=== PATIENT | female | born 1975 | race Caucasian/White ===

== ENCOUNTER 2017-10-02 22:53 | Inpatient (IN) | payer BC, MEDICAID ==
[~2017-10-02] VITALS: Ht 165.1 cm; Wt 77.1 kg
[2017-10-03 01:13] LABS: BASOPHILS % (AUTO) 0.7 % (0.0-2.0); EOSINOPHILS % (AUTO) 0.9 % (1.0-6.0); HEMOGLOBIN 16.3 g/dL (12.0-16.0); LYMPHOCYTES # (AUTO) 1.2 K/uL (1.0-4.8); LYMPHOCYTES % (AUTO) 12.2 % (22.0-44.0); MEAN CORPUSCULAR HEMOGLOBIN 30.6 pg (26.0-34.0); MEAN CORPUSCULAR HGB CONC 35.4 G/dL (31.0-37.0); MEAN CORPUSCULAR VOLUME 86 fL (80-100); MONOCYTES # (AUTO) 0.5 K/uL (0.1-1.0); MONOCYTES % (AUTO) 4.5 % (2.0-9.0); NEUTROPHILS # (AUTO) 8.3 K/uL (1.8-7.7); NEUTROPHILS % (AUTO) 81.7 % (40.0-70.0); PLATELET COUNT (AUTO) 162 K/uL (150-450); RED BLOOD CELL COUNT(AUTO) 5.33 MIL/uL (4.00-5.20); RED CELL DISTRIBUTION WIDTH 14.4 % (11.5-14.5)
[2017-10-03 01:23] LABS: ANION GAP 7 mmol/L (8-16); CALCIUM, TOTAL 9.2 mg/dL (8.8-10.5); CARBON DIOXIDE 26 mmol/L (22-29); CHLORIDE 94 mmol/L (98-107); CREATININE 0.62 mg/dL (0.60-1.30); GLOMERULAR FILTR. RATE CALC > 60 mL/min (>60); GLUCOSE,RANDOM 109 mg/dL (70-110); POTASSIUM 3.7 mmol/L (3.5-5.1); SODIUM SERUM 127 mmol/L (136-145); UREA NITROGEN, BLOOD 3 mg/dL (7-18)
[2017-10-03 01:28] LABS: ALANINE AMINOTRANSFERASE 37 U/L (12-78); ALBUMIN 4.1 g/dL (3.4-5.0); ALKALINE PHOSPHATASE 94 U/L (46-116); ASPARTATE AMINOTRANSFERASE 27 U/L (15-37); BILIRUBIN,TOTAL 0.7 mg/dL (0.1-1.0); TOTAL PROTEIN, SERUM 7.1 g/dL (6.4-8.2)
[2017-10-03] MEDS ORDERED: SODIUM CHLORIDE 1 GM TABLET PO ONE (01:45)
[2017-10-03] MEDS ORDERED: SODIUM CHLORIDE 0.9% 1,000 ML IV ONE (02:00)
[2017-10-03] MEDS ORDERED: LORazepam 2 MG/ML VIAL IVP ONE (02:15)
[2017-10-03] MEDS ORDERED: HALOPERIDOL LACTATE 5 MG/ML VIAL IM ONE (02:15)
[2017-10-03] MEDS ORDERED: NEOMYCIN/BACITRACIN/POLYMYXIN B OINTMENT PACKET TP ONE ×2 (02:15)
[2017-10-03] MEDS ORDERED: ZOLPIDEM TARTRATE 10 MG TABLET PO PRN (02:30)
[2017-10-03 03:13] LABS: CHOL/HDL RATIO 2.6 (3.9-5.7); CHOLESTEROL 157 mg/dL (131-200); HDL CHOLESTEROL 61 mg/dL (40-60); LDL CHOL (CALC.) 69 mg/dL (0-130); TRIGLYCERIDES 133 mg/dL (15-150)
[2017-10-03 03:34] LABS: FREE T4 (FREE THYROXINE) 1.27 ng/dL (0.76-1.46); THYROID STIMULATING HORMONE 2.32 uIU/mL (0.36-3.74)
[2017-10-03 03:46] LABS: HEMOGLOBIN A1C 5.2 % (4.5-6.2)
[2017-10-03 10:38] LABS: GLUCOMETER DEV NAME(LOC) BV3S 2; GLUCOSE,POINT OF CARE 81 MG/DL (70-110)
[2017-10-03 10:55] VITALS: BP 118/81
[2017-10-03] MEDS: OLANZapine 5 MG TABLET PO SCH (16:15)
[2017-10-03] MEDS: LORazepam 2 MG TABLET PO PRN (16:16)
[2017-10-03 16:40] VITALS: BP 124/70
[2017-10-04 06:48] VITALS: BP 135/85
[2017-10-04] MEDS: OLANZapine 5 MG TABLET PO SCH ×2 (08:07→16:46)
[2017-10-04] MEDS: LORazepam 2 MG TABLET PO PRN ×2 (08:07→16:46)
[2017-10-04 08:17] VITALS: BP 126/74
[2017-10-04] MEDS ORDERED: MAG HYDROX/AL HYDROX/SIMETH ES 30 ML SUSPENSION UDCUP PO PRN (10:45)
[2017-10-04] MEDS ORDERED: DOCUSATE SODIUM 100 MG CAPSULE PO PRN (10:45)
[2017-10-04] MEDS ORDERED: ALBUTEROL SULFATE HFA 90 MCG/PUFF 8 GM INHALER IH PRN (10:45)
[2017-10-04] MEDS ORDERED: MAGNESIUM HYDROXIDE SUSPENSION 30 ML UDCUP PO PRN (10:45)
[2017-10-04] MEDS ORDERED: PETROLATUM,WHITE 71 GM JELLY TP PRN (10:45)
[2017-10-04] MEDS ORDERED: IBUPROFEN 400 MG TABLET PO PRN (10:45)
[2017-10-04] MEDS ORDERED: ACETAMINOPHEN 325 MG TABLET PO PRN (10:45)
[2017-10-04 16:22] VITALS: BP 117/79
[2017-10-05 06:18] VITALS: BP 123/77
[2017-10-05 08:54] LABS: ANION GAP 7 mmol/L (8-16); CALCIUM, TOTAL 8.9 mg/dL (8.8-10.5); CARBON DIOXIDE 27 mmol/L (22-29); CHLORIDE 104 mmol/L (98-107); CREATININE 0.66 mg/dL (0.60-1.30); GLOMERULAR FILTR. RATE CALC > 60 mL/min (>60); GLUCOSE,RANDOM 115 mg/dL (70-110); POTASSIUM 4.5 mmol/L (3.5-5.1); SODIUM SERUM 138 mmol/L (136-145); UREA NITROGEN, BLOOD 10 mg/dL (7-18)
[2017-10-05] MEDS: OLANZapine 5 MG TABLET PO SCH ×2 (09:05→17:00)
[2017-10-05 17:07] VITALS: BP 150/89
[2017-10-06 08:38] VITALS: BP 119/66
[2017-10-06] MEDS: OLANZapine 5 MG TABLET PO SCH ×2 (09:11→17:08)
[2017-10-06 16:19] VITALS: BP 130/66
[2017-10-06] MEDS: LORazepam 2 MG TABLET PO PRN (17:08)
[2017-10-07 07:05] VITALS: BP 115/75
[2017-10-07 08:33] VITALS: BP 105/61
[2017-10-07] MEDS: OLANZapine 5 MG TABLET PO SCH ×2 (09:04→16:13)
[2017-10-07] MEDS: LORazepam 2 MG TABLET PO PRN (16:14)
[2017-10-07 17:48] VITALS: BP 126/77
[2017-10-08 08:09] VITALS: BP 111/57
[2017-10-08] MEDS: OLANZapine 7.5 MG TABLET PO SCH ×2 (08:18→16:21)
[2017-10-08 15:57] VITALS: BP 128/84
[2017-10-08 16:00] VITALS: BP 128/84
[2017-10-09 06:23] VITALS: BP 105/64
[2017-10-09 08:29] VITALS: BP 111/74
[2017-10-09] MEDS: OLANZapine 10 MG TABLET PO SCH ×2 (08:47→16:46)
[2017-10-09 16:18] VITALS: BP 113/63
[2017-10-10 08:41] VITALS: BP 121/88
[2017-10-10] MEDS: OLANZapine 10 MG TABLET PO SCH ×2 (08:48→16:43)
[2017-10-10 17:44] VITALS: BP 114/66
[2017-10-11 08:14] VITALS: BP 111/92
[2017-10-11] MEDS: OLANZapine 10 MG TABLET PO SCH ×2 (09:13→17:34)
[2017-10-11 16:50] VITALS: BP 119/75
[2017-10-12] VITALS: BP 113/65
[2017-10-12 08:11] VITALS: BP 106/55
[2017-10-12] MEDS: OLANZapine 10 MG TABLET PO SCH ×2 (08:48→16:19)
[2017-10-12 16:04] VITALS: BP 112/69
[2017-10-12] MEDS: HALOPERIDOL 5 MG TABLET PO PRN (16:24)
[2017-10-13 06:02] VITALS: BP 130/83
[2017-10-13 08:07] VITALS: BP 120/68
[2017-10-13] MEDS: OLANZapine 10 MG TABLET PO SCH ×2 (08:22→16:53)
[2017-10-13 16:00] VITALS: BP 121/73
[2017-10-13] MEDS: DIVALPROEX SODIUM 250 MG ER TABLET PO SCH (16:53)
[2017-10-14 03:51] VITALS: BP 137/90
[2017-10-14 08:00] VITALS: BP 107/60
[2017-10-14] MEDS: DIVALPROEX SODIUM 250 MG ER TABLET PO SCH ×2 (08:56→16:49)
[2017-10-14] MEDS: OLANZapine 10 MG TABLET PO SCH ×2 (08:56→16:49)
[2017-10-14 16:13] VITALS: BP 126/72
[2017-10-15 04:04] VITALS: BP 128/70
[2017-10-15 08:12] VITALS: BP 105/64
[2017-10-15] MEDS: DIVALPROEX SODIUM 250 MG ER TABLET PO SCH ×2 (08:52→16:20)
[2017-10-15] MEDS: OLANZapine 10 MG TABLET PO SCH ×2 (08:52→16:20)
[2017-10-15] MEDS ORDERED: DIVA250T45 PO (08:54)
[2017-10-15] MEDS ORDERED: OLAN10TA3 PO (08:54)
[2017-10-15] MEDS: HALOPERIDOL 5 MG TABLET PO PRN (16:20)
[2017-10-15 16:27] VITALS: BP 112/67
[2017-10-16 07:23] VITALS: BP 100/64
[2017-10-16] MEDS: OLANZapine 10 MG TABLET PO SCH (08:13)
[2017-10-16] MEDS: DIVALPROEX SODIUM 250 MG ER TABLET PO SCH (08:13)
[2017-10-16 08:24] VITALS: BP 130/74
[2017-10-16 08:51] LABS: BASOPHILS % (AUTO) 0.6 % (0.0-2.0); EOSINOPHILS % (AUTO) 2.2 % (1.0-6.0); HEMATOCRIT 46.7 % (36-46); HEMOGLOBIN 16.1 g/dL (12.0-16.0); LYMPHOCYTES # (AUTO) 1.6 K/uL (1.0-4.8); LYMPHOCYTES % (AUTO) 27.8 % (22.0-44.0); MEAN CORPUSCULAR HEMOGLOBIN 30.2 pg (26.0-34.0); MEAN CORPUSCULAR HGB CONC 34.5 G/dL (31.0-37.0); MEAN CORPUSCULAR VOLUME 88 fL (80-100); MONOCYTES # (AUTO) 0.3 K/uL (0.1-1.0); MONOCYTES % (AUTO) 5.2 % (2.0-9.0); NEUTROPHILS # (AUTO) 3.8 K/uL (1.8-7.7); NEUTROPHILS % (AUTO) 64.2 % (40.0-70.0); PLATELET COUNT (AUTO) 154 K/uL (150-450); RED BLOOD CELL COUNT(AUTO) 5.34 MIL/uL (4.00-5.20)
[2017-10-16 09:16] LABS: ALANINE AMINOTRANSFERASE 61 U/L (12-78); ALBUMIN 3.6 g/dL (3.4-5.0); ALKALINE PHOSPHATASE 90 U/L (46-116); ANION GAP 6 mmol/L (8-16); ASPARTATE AMINOTRANSFERASE 24 U/L (15-37); BILIRUBIN,TOTAL 0.4 mg/dL (0.1-1.0); CARBON DIOXIDE 28 mmol/L (22-29); CHLORIDE 99 mmol/L (98-107); GLOMERULAR FILTR. RATE CALC > 60 mL/min (>60); GLUCOSE,RANDOM 81 mg/dL (70-110); POTASSIUM 4.8 mmol/L (3.5-5.1); SODIUM SERUM 133 mmol/L (136-145); TOTAL PROTEIN, SERUM 6.8 g/dL (6.4-8.2); UREA NITROGEN, BLOOD 18 mg/dL (7-18); VALPROIC ACID 45 mcg/mL (50-100)
== END 2017-10-16 13:30 | disposition home or self-care (01) | DRG 885 ==
LOC: EMS 22:55 → B3A 10-03 06:00
PROVIDERS: ADMIT Psychiatry & Neurology Psychiatry; ATTEND Psychiatry & Neurology Psychiatry
DX: F29 Unspecified psychosis not due to a substance or known physiological condition (principal); E87.1 Hypo-osmolality and hyponatremia; F10.10 Alcohol abuse, uncomplicated; F41.9 Anxiety disorder, unspecified; R00.0 Tachycardia, unspecified; H91.90 Unspecified hearing loss, unspecified ear; S00.81XA Abrasion of other part of head, initial encounter; X58.XXXA Exposure to other specified factors, initial encounter; Y93.89 Activity, other specified; Y92.89 Other specified places as the place of occurrence of the external cause; Y99.8 Other external cause status; Z71.41 Alcohol abuse counseling and surveillance of alcoholic
CPT/HCPCS: 83036; 84295; 84439; 84443; 87081; 96361; 96372; 96374; 99285; G0480; J1630; J2060; J7030

== ENCOUNTER 2018-01-16 13:20 | Emergency (ER) | payer BC, OTHER ==
[~2018-01-16] VITALS: Ht 165.1 cm; Wt 52.3 kg
[~2018-01-16 13:20] MED LIST: DIVA250T45 PO; OLAN10TA3 PO
[2018-01-16 14:11] LABS: BASOPHILS % (AUTO) 0.5 % (0.0-2.0); EOSINOPHILS % (AUTO) 2.9 % (1.0-6.0); HEMATOCRIT 42.1 % (36-46); LYMPHOCYTES # (AUTO) 1.7 K/uL (1.0-4.8); LYMPHOCYTES % (AUTO) 20.1 % (22.0-44.0); MEAN CORPUSCULAR HEMOGLOBIN 30.4 pg (26.0-34.0); MEAN CORPUSCULAR HGB CONC 35.6 G/dL (31.0-37.0); MEAN CORPUSCULAR VOLUME 85 fL (80-100); MONOCYTES # (AUTO) 0.3 K/uL (0.1-1.0); MONOCYTES % (AUTO) 3.8 % (2.0-9.0); NEUTROPHILS # (AUTO) 6.1 K/uL (1.8-7.7); NEUTROPHILS % (AUTO) 72.7 % (40.0-70.0); PLATELET COUNT (AUTO) 133 K/uL (150-450); RED BLOOD CELL COUNT(AUTO) 4.95 MIL/uL (4.00-5.20); RED CELL DISTRIBUTION WIDTH 13.9 % (11.5-14.5)
[2018-01-16 14:24] LABS: ANION GAP 10 mmol/L (8-16); CALCIUM, TOTAL 8.2 mg/dL (8.8-10.5); CARBON DIOXIDE 27 mmol/L (22-29); CHLORIDE 101 mmol/L (98-107); CREATININE 1.08 mg/dL (0.60-1.30); GLOMERULAR FILTR. RATE CALC 55 mL/min (>60); GLUCOSE,RANDOM 100 mg/dL (70-110); POTASSIUM 3.1 mmol/L (3.5-5.1); SODIUM SERUM 138 mmol/L (136-145); UREA NITROGEN, BLOOD 7 mg/dL (7-18)
[2018-01-16 14:30] LABS: ALANINE AMINOTRANSFERASE 52 U/L (12-78); ALBUMIN 3.6 g/dL (3.4-5.0); ALKALINE PHOSPHATASE 98 U/L (46-116); ASPARTATE AMINOTRANSFERASE 71 U/L (15-37); BILIRUBIN,TOTAL 0.8 mg/dL (0.1-1.0); TOTAL PROTEIN, SERUM 6.2 g/dL (6.4-8.2)
[2018-01-16 14:43] LABS: VALPROIC ACID < 3 mcg/mL (50-100)
[2018-01-16 19:00] VITALS: BP 116/68
== END 2018-01-16 19:22 | disposition home or self-care (01) ==
LOC: EMS 13:21
DX: F20.9 Schizophrenia, unspecified (principal); E11.9 Type 2 diabetes mellitus without complications
CPT/HCPCS: 36415; 80053; 80164; 85025; 99284; G0480

== ENCOUNTER 2021-01-14 20:24 | Emergency (ER) | payer MEDICARE, OTHER ==
[~2021-01-14] VITALS: Ht 154.9 cm; Wt 84.1 kg
[~2021-01-14 20:24] MED LIST changes: +DIVA-85 PO; -DIVA250T45 PO; -OLAN10TA3 PO; +OLAN10TA74 PO
[2021-01-14] MEDS ORDERED: METF-960 PO (20:39)
[2021-01-14] MEDS ORDERED: ATOR10TA84 PO (20:39)
[2021-01-14 22:41] VITALS: BP 118/80
[2021-01-14] MEDS ORDERED: BACITRACIN 0.9 GM PACKET OINTMENT TP ONE (22:45)
== END 2021-01-14 22:55 | disposition home or self-care (01) ==
LOC: EMS 20:27
DX: S91.204A Unspecified open wound of right lesser toe(s) with damage to nail, initial encounter (principal); E11.9 Type 2 diabetes mellitus without complications; E78.00 Pure hypercholesterolemia, unspecified; I10 Essential (primary) hypertension; F20.9 Schizophrenia, unspecified; X58.XXXA Exposure to other specified factors, initial encounter; Y93.89 Activity, other specified; Y92.89 Other specified places as the place of occurrence of the external cause; Y99.8 Other external cause status
CPT/HCPCS: 11730; 99282; 99284; Z7502; Z7610